=== PATIENT | male | born 1930 | race Caucasian/White ===

== ENCOUNTER 2016-07-06 14:02 | Inpatient (IN) | payer MEDICARE, BC ==
[2016-07-06 14:05] VITALS: O2SAT 95
[2016-07-06 14:26] LABS: AUTOMATED NEUTROPHIL # 4.1 TH/MM3 (1.8-7.7); BASOPHIL % 0.4 % (0.0-2.0); EOSINOPHIL # 0.2 TH/MM3 (0-0.4); EOSINOPHIL % 3.5 % (0.0-4.0); HEMATOCRIT 35.7 % (39.0-51.0); HEMO FLAGS DIFF FINAL; LYMPH % 17.3 % (9.0-44.0); LYMPHOCYTE # 1.1 TH/MM3 (1.0-4.8); MEAN CELL VOLUME 94.9 FL (80.0-100.0); MEAN CORPUSCULAR HEMOGLOBIN 31.8 PG (27.0-34.0); MEAN CORPUSCULAR HGB CONC 33.6 % (32.0-36.0); MONO % 14.3 % (0.0-8.0); NEUT % 64.5 % (16.0-70.0); PLATELET COUNT 103 TH/MM3 (150-450); RED BLOOD COUNT 3.77 MIL/MM3 (4.50-5.90); RED CELL DISTRIBUTION WIDTH 13.2 % (11.6-17.2); WHITE BLOOD COUNT 6.3 TH/MM3 (4.0-11.0)
[2016-07-06 14:30] LABS: I-STAT POTASSIUM 4.9 MMOL/L (3.5-4.9)
--- NOTE | 2016-07-06 14:34 | PD ---
HPI Chief Complaint: trauma alert Time Seen by Provider: 14:23 Travel History International Travel<30 days: No Contact w/Intl Traveler<30days: No Traveled to known affect area: No History of Present Illness HPI Patient was about 89 years old was brought to the emergency room by EMS after falling from a 15 feet high ladder. Patient lost his footing and landed on the ground. He was complaining of left sided hip pain. He was unable to stand up and walk after the fall. I was in the room along with the trauma surgeon to see the patient prior to their arrival as per the radio call. Trauma alert was called based on the age and the mechanism. Patient was brought in boarded and collared. His GCS was 15 the entire transportation. He was hemodynamically stable. He has been complaining only of his left hip pain. Patient is not on any blood thinners. The fall happened about 1 hour prior to arrival. No history of LOC. [facility] Past Medical History Narrative Medical List of his past medical history as reviewed from the nursing note. Allergies-Medications (Allergen,Severity, Reaction): Coded Allergies: No Known Allergies (Unverified , 07/07/16) Comments Patient denied any allergies Reported Meds & Prescriptions Reported Meds & Active Scripts Active Reported B12 (Cyanocobalamin) 1,000 Mcg Tab 1,000 Mcg PO DAILY Vitamin D (Cholecalciferol) 2,000 Unit Tab Aspirin 81 Mg Chew 81 Mg CHEW DAILY Metronidazole Topical 1 % Gel 1 Applic TOPICAL DAILY Metronidazole Topical 1 % Gel 1 Applic TOPICAL DAILY Trazodone (Trazodone HCl) 50 Mg Tab 50 Mg PO HS PRN Furosemide 20 Mg Tab 20 Mg PO DAILY Pravastatin 20 Mg Tab 20 Mg PO DAILY Carvedilol 25 Mg Tab 25 Mg PO BID Lisinopril 10 Mg Tab 10 Mg PO DAILY Narrative Medication Awaiting for the nurse to do the med reconciliation for all medications. Review of Systems Except as stated in HPI: all other systems reviewed are Neg Physical Exam Narrative GENERAL: Awake, alert, boarded and collared, elderly, moderate distress SKIN: Warm and dry. HEAD: Atraumatic. Normocephalic. EYES: Pupils equal and round. No scleral icterus. No injection or drainage. ENT: No nasal bleeding or discharge. Mucous membranes pink and moist. NECK: Trachea midline. No JVD. CARDIOVASCULAR: Regular rate and rhythm. No murmur appreciated. RESPIRATORY: No accessory muscle use. Clear to auscultation. Breath sounds equal bilaterally. GASTROINTESTINAL: Abdomen soft, non-tender, nondistended. Hepatic and splenic margins not palpable. MUSCULOSKELETAL: No obvious deformities. No clubbing. No cyanosis. No edema. Distal pulses were present. Patient had full sensation distally. Decreased range of motion at the left hip joint due to pain. No leg length shortening. NEUROLOGICAL: Awake and alert. No obvious cranial nerve deficits. Motor grossly within normal limits. Normal speech. PSYCHIATRIC: Appropriate mood and affect; insight and judgment normal. Data Data Last Documented VS Vital Signs Date Time Temp Pulse Resp B/P Pulse Ox O2 Delivery O2 Flow Rate FiO2 07/06/16 14:05 95 4.00 07/06/16 14:05 Nasal Cannula Orders I-Stat Profile (07/06/16 14:08) I-Stat Creatinine (07/06/16 14:08) Complete Blood Count With Diff (07/06/16 14:08) Prothrombin Time / Inr (Pt) (07/06/16 14:08) Act Partial Throm Time (Ptt) (07/06/16 14:08) Type And Screen (07/06/16 14:08) Chest, Single Ap (07/06/16 14:08) Pelvis, Ap Only (Routine) (07/06/16 14:08) Ct Brain W/O Iv Contrast(Rout) (07/06/16 14:08) Ct Cerv Spine W/O Contrast (07/06/16 14:08) Ct Abd/Pel W Iv Contrast(Rout) (07/06/16 14:08) Ct Thorax/ Chest W Iv Contrast (07/06/16 14:08) Iv Access Insert/Monitor (07/06/16 14:08) Ecg Monitoring (07/06/16 14:08) Oximetry (07/06/16 14:08) Oxygen Administration (07/06/16 14:08) Fentanyl Inj (Fentanyl Inj) (07/06/16 14:13) Hip, Ap Only Wo Ap Pelvis (07/06/16 ) Admit Order (Ed Use Only) (07/06/16 14:34) Labs Laboratory Tests Test 07/06/16 14:10 White Blood Count 6.3 TH/MM3 Red Blood Count 3.77 MIL/MM3 Hemoglobin 12.0 GM/DL Bedside Hemoglobin 11.6 G/DL Hematocrit 35.7 % Bedside Hematocrit 34.0 % Mean Corpuscular Volume 94.9 FL Mean Corpuscular Hemoglobin 31.8 PG Mean Corpuscular Hemoglobin 33.6 % Concent Red Cell Distribution Width 13.2 % Platelet Count 103 TH/MM3 Mean Platelet Volume 7.9 FL Neutrophils (%) (Auto) 64.5 % Lymphocytes (%) (Auto) 17.3 % Monocytes (%) (Auto) 14.3 % Eosinophils (%) (Auto) 3.5 % Basophils (%) (Auto) 0.4 % Neutrophils # (Auto) 4.1 TH/MM3 Lymphocytes # (Auto) 1.1 TH/MM3 Monocytes # (Auto) 0.9 TH/MM3 Eosinophils # (Auto) 0.2 TH/MM3 Basophils # (Auto) 0.0 TH/MM3 CBC Comment DIFF FINAL Differential Comment Prothrombin Time 11.2 SEC Prothromb Time International 1.0 RATIO Ratio Activated Partial 22.4 SEC Thromboplast Time Bedside Sodium 145 MMOL/L Bedside Potassium 4.9 MMOL/L Bedside Chloride 107 MMOL/L Bedside Blood Urea Nitrogen 32 MG/DL Bedside Creatinine 1.5 MG/DL Bedside Glucose 118 MG/DL Blood Type A POSITIVE Antibody Screen NEGATIVE MDM Medical Screen Exam Complete: Yes Emergency Medical Condition: Yes Medical Record Reviewed: Yes EKG Prior to Arrival: Yes Differential Diagnosis Hip fracture, pelvic fracture, intracranial bleed, cervical fracture, intrathoracic injury, intra-abdominal injury Narrative Course 2:31 PM patient was rolled off the backboard and the spine was palpated by me. There was no point tenderness or step-offs. Rest of his exam for secondary survey remained within normal limits. Patient was taken to CT scan and the trauma surgeon assisted him. Patient remained hemodynamically stable prior to leaving the trauma bay. The portable x-ray of the pelvis and hip showed a left superior and inferior rami fracture. Patient will be admitted to the trauma surgeon based on this. No FAST exam was performed. Critical Care Narrative Aggregate critical care time was 30 minutes. Time to perform other separately billable procedures was not included in the critical care time. My time did not include minutes spent treating any other patients simultaneously or on activities that did not directly contribute to the patient's treatment. The services I provided to this patient were to treat and/or prevent clinically significant deterioration that could result in: Trauma alert, pelvic fracture I provided critical care services requiring my management, as noted below: Chart data review, documentation time, medication orders and management, vital sign assessments/reviewing monitor data, ordering and reviewing lab tests, ordering and interpreting/reviewing x-rays and diagnostic studies, care of the patient and discussion of the patient with the admitting physicians. Trauma Alert - Level One Trauma Alert Level One: Full trauma team activate, Patient evaluated, Trauma surgeon summoned Trauma Alert - Level Two Time Surgeon Called: 13:[address] Yoon Diagnosis Diagnosis: Primary Impression: Fall Qualified Code: W19.XXXA - Fall, initial encounter Additional Impression: Pelvic fracture Qualified Code: S32.502A - Closed fracture of left pubis, unspecified portion of pubis, initial encounter Admitting Physician Requests: Eb Matta MD Jul 06, 2016 14:33
--- NOTE | 2016-07-06 14:34 | RADRPT ---
EXAM DATE/TIME: 07/06/2016 13:56 [facility] COMPARISON: No previous studies available for comparison. INDICATIONS : Trauma alert, fell off a ladder. MEDICAL HISTORY : Unobtainable. SURGICAL HISTORY : Unobtainable. ENCOUNTER: Initial ACUITY: 1 day PAIN SCORE: Non-responsive. LOCATION: Bilateral chest FINDINGS: Artifact is present from a backboard. The heart is enlarged. Pulmonary vascularity is normal. There is no evidence for pneumothorax. Ther e is no alveolar consolidation. CONCLUSION: Compensated cardiomegaly without pneumothorax. Jarod Corrigan MD FACR on July 06, 2016 at 14:27 Board Certified Radiologist. This report was verified electronically.
--- NOTE | 2016-07-06 14:35 | RADRPT ---
EXAM DATE/TIME: 07/06/2016 13:56 [facility] COMPARISON: No previous studies available for comparison. INDICATIONS : Left hip pain. Trauma alert, fell off a ladder. MEDICAL HISTORY : Unobtainable. SURGICAL HISTORY : Unobtainable. ENCOUNTER: Initial ACUITY: 1 day PAIN SCORE: Non-responsive. LOCATION: Left hip. FINDINGS: Proximal femur is intact although internally rotated. CT scan is pending. CONCLUSION: Intact proximal femur. CT scan is pending. Jarod Corrigan MD FACR on July 06, 2016 at 14:27 Board Certified Radiologist. This report was verified electronically.
[2016-07-06] MEDS ORDERED: IOHEXOL 350 MG/ML 10 ML VIAL (for RAD DIAG) IV ONE (14:36)
--- NOTE | 2016-07-06 14:37 | RADRPT ---
EXAM DATE/TIME: 07/06/2016 13:56 [facility] COMPARISON: No previous studies available for comparison. INDICATIONS : Trauma alert, fell off ladder. MEDICAL HISTORY : Unobtainable. SURGICAL HISTORY : Unobtainable. ENCOUNTER: Initial ACUITY: 1 day PAIN SCORE: Non-responsive. LOCATION: Left pelvis. FINDINGS: Single view of the pelvis on a backboard reveals anatomic alignment without fracture. Phleboliths ar e present in the pelvis. Artifact is present from backboard. CONCLUSION: Anatomic alignment without fracture. Jarod Corrigan MD FACR on July 06, 2016 at 14:27 Board Certified Radiologist. This report was verified electronically.
--- NOTE | 2016-07-06 14:37 | RADRPT ---
EXAM DATE/TIME: 07/06/2016 14:19 [facility] COMPARISON: No previous studies available for comparison. INDICATIONS : Trauma alert, fall from ladder today. RADIATION DOSE: 61.90 CTDIvol (mGy) MEDICAL HISTORY : unobtainable SURGICAL HISTORY : unobtainable ENCOUNTER: Initial ACUITY: 1 day PAIN SCALE: Non-responsive LOCATION: Bilateral head TECHNIQUE: Multiple contiguous axial images were obtained of the head. Using automated exposure control and adj ustment of the mA and/or kV according to patient size, radiation dose was kept as low as reasonably a chievable to obtain optimal diagnostic quality images. FINDINGS: CEREBRUM: The ventricles are normal for age. No evidence of midline shift, mass lesion, hemorrhage or acute in farction. No extra-axial fluid collections are seen. POSTERIOR FOSSA: The cerebellum and brainstem are intact. The 4th ventricle is midline. The cerebellopontine angle i s unremarkable. EXTRACRANIAL: The visualized portion of the orbits is intact. SKULL: The calvaria is intact. No evidence of skull fracture. CONCLUSION: Negative for an acute process.. Jarod Corrigan MD FACR on July 06, 2016 at 14:35 Board Certified Radiologist. This report was verified electronically.
[2016-07-06 14:38] LABS: APTT (PATIENT) 22.4 SEC (24.3-30.1); PROTHROMBIN TIME - PATIENT 11.2 SEC (9.8-11.6)
--- NOTE | 2016-07-06 14:55 | RADRPT ---
EXAM DATE/TIME: 07/06/2016 14:28 [facility] COMPARISON: No previous studies available for comparison. INDICATIONS : Trauma alert, fall from ladder today. IV CONTRAST: 80 cc Omnipaque 350 (iohexol) IV ; Cumulative dose for multiple exams. RADIATION DOSE: 15.70 CTDIvol (mGy) ; Combined studies MEDICAL HISTORY : Unobtainable SURGICAL HISTORY : Unobtainable ENCOUNTER: Initial ACUITY: 1 day PAIN SCALE: Non-responsive LOCATION: Bilateral chest TECHNIQUE: Volumetric scanning of the chest was performed. Using automated exposure control and adjustment of the mA and/or kV according to patient size, radiation dose was kept as low as reasonab ly achievable to obtain optimal diagnostic quality images. FINDINGS: Patchy air-space disease is seen in both the right and left lungs. There is a nodulari ty on the right with a 1.5 cm nodular opacity evident. Several other smaller lung nodules are noted o n the right that do deserve further evaluation. Ground glass opacities are evident. The heart is enlarged with mild interstitial prominence. There is no pericardial effusion. There is no pneumothorax. There is adenopathy in the mediastinum with the largest node measuring 2.7 cm which is abnormal. Moderate coronary artery calcifications are seen in the LAD. Portion of the liver and spleen identified are free of focal defects. Review of bone windows reveals degenerative changes in the sternum manubrial joint. There is no evid ence for a rib fracture. There is no evidence for a scapula or clavicle fracture. CONCLUSION: 1. Negative for acute traumatic injury. 2. Abnormal chest with scattered nodular opacities and mediastinal adenopathy that deservers further evaluation. Jarod Corrigan MD FACR on July 06, 2016 at 14:44 Board Certified Radiologist. This report was verified electronically.
--- NOTE | 2016-07-06 14:55 | RADRPT ---
EXAM DATE/TIME: 07/06/2016 14:19 [facility] COMPARISON: No previous studies available for comparison. INDICATIONS: Trauma alert, fall from ladder today. RADIATION DOSE: 22.51 CTDIvol (mGy) MEDICAL HISTORY: Unobtainable SURGICAL HISTORY: Unobtainable ENCOUNTER: Initial ACUITY: 1 day PAIN SCALE: Non-responsive LOCATION: Bilateral neck TECHNIQUE: Volumetric scanning of the cervical spine was performed. Multiplanar reconstructions in the sagittal, coronal and oblique axial planes were performed. Using automated exposure control and adjustment o f the mA and/or kV according to patient size, radiation dose was kept as low as reasonably achievable to obtain optimal diagnostic quality images. FINDINGS: There are degenerative changes in the cervical spine. Alignment is anatomic. C2-C3: Moderate facet disease is present with bilateral neural foraminal encroachment. C3-C4: Moderate facet disease is present with bilateral neural foraminal encroachment worse on the right rylan n the left. C4-C5: Mild facet disease is present with minimal interspace ridging. There is mild cervical spinal stenosi s. C5-C6: Mild facet disease is present with moderate right-sided neural foraminal encroachment. There is no s ignificant spinal stenosis. C6-C7: Uncinate ridging is present with mild bilateral neural foraminal encroachment worse on the right than the left. C7-T1: The bony spinal canal is normal in size. No evidence of disc bulge or herniation. The neural forami na are bilaterally patent. CONCLUSION: Degenerative changes as described above. I do not see evidence for a fracture. Most significant fin ding is neural foraminal encroachment. Jarod Corrigan MD FACR on July 06, 2016 at 14:49 Board Certified Radiologist. This report was verified electronically.
--- NOTE | 2016-07-06 14:59 | RADRPT ---
EXAM DATE/TIME: 07/06/2016 14:28 [facility] COMPARISON: PELVIS AP ONLY, July 06, 2016, 13:56. INDICATIONS : Trauma alert, fall from ladder today. IV CONTRAST: 80 cc Omnipaque 350 (iohexol) IV ; Cumulative dose for multiple exams. ORAL CONTRAST: No oral contrast ingested. RADIATION DOSE: 15.70 CTDIvol (mGy) ; Combined studies MEDICAL HISTORY : Unobtainable SURGICAL HISTORY : Unobtainable ENCOUNTER: Initial ACUITY: 1 day PAIN SCALE: Non-responsive LOCATION: Bilateral abdomen TECHNIQUE: Volumetric scanning of the abdomen and pelvis was performed. Using automated exposure control and adjustment of the mA and/or kV according to patient size, radiation dose was kept as low as reasonably achievable to obtain optimal diagnostic quality images. FINDINGS: Again seen is nodular opacities in both lung bases with scattered areas of pleural thic kening. The liver is free of focal defects. Spleen, pancreas, and adrenals are unremarkable. There is symmetrical renal function. There is no free fluid or free air identified. Bladder is distended. There is a fracture of the symphysis pubis with a very small hematoma evident. Both the right and left hips are intact. CONCLUSION: 1. Nondisplaced fracture of the pubic symphysis with a small hematoma present. 2. Intra-abdominal contents are unremarkable. Jarod Corrigan MD FACR on July 06, 2016 at 14:50 Board Certified Radiologist. This report was verified electronically.
[2016-07-06] MEDS ORDERED: MISCELLANEOUS NURSING INFORMATION XX SCH (15:45)
[2016-07-06] MEDS ORDERED: ENALAPRILAT 1.25 MG/ML VIAL IV PRN (15:45)
[2016-07-06] MEDS ORDERED: MAGNESIUM HYDROXIDE SUSP 30 ML CUP PO PRN (15:45)
[2016-07-06] MEDS ORDERED: SODIUM CHLORIDE 0.9% FLUSH 5 ML FLUSH IVF PRN (15:45)
[2016-07-06] MEDS ORDERED: MORPHINE SULFATE 4 MG/ML INJ IV PRN (15:45)
[2016-07-06] MEDS ORDERED: ACETAMINOPHEN/HYDROcodone 325 MG/5 MG TAB PO PRN (15:45)
[2016-07-06] MEDS ORDERED: CHLORHEXIDINE GLUCONATE 2 % 1 PACK (2 CLOTHS) TOP PRN (15:45)
[2016-07-06 16:13] VITALS: BP 174/78; PULSE 70; RESP 18; O2SAT 97; O2SAT 98
--- NOTE | 2016-07-06 16:17 | HHI.HP ---
HPI Service Critical Care Medicine Primary Care Physician Admission Diagnosis fall, pelvic fracture Diagnosis: Chief Complaint: Left hip pain Travel History International Travel<30 Days: No Contact w/Intl Traveler <30 Da: No Traveled to Known Affected Are: No History of Present Illness This is a 88-year-old gentleman who will be 89 in 8 days. He was on a ladder by his estimation 10-15 feet high when he lost his footing and fell to his left hip. He denies striking his head or loss of consciousness and has total recall of the event. He was brought in as a trauma alert based on his age and the height of his fall. Patient arrived alert and oriented with a [place] Coma Scale of 15 his only complaint was left hip pain. His pain was 4/10 which was brought down to 0 with fentanyl. Review of Systems Constitutional: DENIES: Diaphoretic episodes, Fatigue, Fever, Weight gain, Weight loss, Chills, Dizziness, Change in appetite, Night Sweats Endocrine: DENIES: Heat/cold intolerance, Polydipsia, Polyuria, Polyphagia Eyes: DENIES: Blurred vision, Diplopia, Eye inflammation, Eye pain, Vision loss , Photosensitivity, Double Vision Ears, nose, mouth, throat: DENIES: Tinnitus, Hearing loss, Vertigo, Nasal discharge, Oral lesions, Throat pain, Hoarseness, Ear Pain, Running Nose, Epistaxis, Sinus Pain, Toothache, Odynophagia Respiratory: DENIES: Apneas, Cough, Snoring, Wheezing, Hemoptysis, Sputum production, Shortness of breath Cardiovascular: DENIES: Chest pain, Palpitations, Syncope, Dyspnea on Exertion , PND, Lower Extremity Edema, Orthopnea, Claudication Gastrointestinal: DENIES: Abdominal pain, Black stools, Bloody stools, Constipation, Diarrhea, Nausea, Vomiting, Difficulty Swallowing, Anorexia Genitourinary: DENIES: Sexual dysfunction, Urinary frequency, Urinary incontinence, Urgency, Hematuria, Dysuria, Nocturia, Penile Discharge, Testicular Pain, Testicular Swelling Musculoskeletal: COMPLAINS OF: Joint pain (left hip), DENIES: Muscle aches, Stiffness, Joint Swelling, Back pain, Neck pain Integumentary: DENIES: Abnormal pigmentation, Nail changes, Pruritus, Rash Hematologic/lymphatic: DENIES: Bruising, Lymphadenopathy Immunologic/allergic: DENIES: Eczema, Urticaria Psychiatric: DENIES: Anxiety, Confusion, Mood changes, Depression, Hallucinations, Agitation, Suicidal Ideation, Homicidal Ideation, Delusions Past Family Social History Allergies: Coded Allergies: No Known Allergies (Unverified , 07/06/16) Past Medical History Patient is unsure of his medical history but includes hypertension hypercholesterolemia Past Surgical History Right rotator cuff surgery Reported Medications Lisinopril 10 mg a day carvedilol 25 mg twice a day pravastatin 20 mg daily furosemide 20 mg daily This comes from a hand written list list provided by the patient Family History Reviewed and not relevant Social History Patient denies alcohol tobacco or illegal drug use Physical Exam Vital Signs Vital Signs Date Time Temp Pulse Resp B/P Pulse Ox O2 Delivery O2 Flow Rate FiO2 07/06/16 14:05 95 4.00 Physical Exam Alert and oriented 88-year-old gentleman in no acute distress Head atraumatic normocephalic pupils equal round reactive to light extraocular movements intact sclerae nonicteric conjunctiva was pink Neck soft trachea midline, no tenderness to palpation of the cervical spine Lungs clear to auscultation bilaterally, no tenderness or crepitus to palpation of his chest wall or clavicles Heart regular rate and rhythm Abdomen soft nontender nondistended Pelvis is stable with left-sided tenderness, femoral pulses are palpable bilaterally There is no clubbing cyanosis or edema, chronic venous changes to bilateral lower extremities, palpable dorsalis pedis pulses bilaterally Patient's mood and affect are appropriate Cranial nerves II through XII appear grossly intact Laboratory Laboratory Tests Test 07/06/16 14:10 White Blood Count 6.3 Red Blood Count 3.77 Hemoglobin 12.0 Bedside Hemoglobin 11.6 Hematocrit 35.7 Bedside Hematocrit 34.0 Mean Corpuscular Volume 94.9 Mean Corpuscular Hemoglobin 31.8 Mean Corpuscular Hemoglobin 33.6 Concent Red Cell Distribution Width 13.2 Platelet Count 103 Mean Platelet Volume 7.9 Neutrophils (%) (Auto) 64.5 Lymphocytes (%) (Auto) 17.3 Monocytes (%) (Auto) 14.3 Eosinophils (%) (Auto) 3.5 Basophils (%) (Auto) 0.4 Neutrophils # (Auto) 4.1 Lymphocytes # (Auto) 1.1 Monocytes # (Auto) 0.9 Eosinophils # (Auto) 0.2 Basophils # (Auto) 0.0 CBC Comment DIFF FINAL Differential Comment Prothrombin Time 11.2 Prothromb Time International 1.0 Ratio Activated Partial 22.4 Thromboplast Time Bedside Sodium 145 Bedside Potassium 4.9 Bedside Chloride 107 Bedside Blood Urea Nitrogen 32 Bedside Creatinine 1.5 Bedside Glucose 118 Blood Type A POSITIVE Antibody Screen NEGATIVE Result Diagram: 07/06/16 1410 Imaging Last Impressions Pelvis X-Ray 07/06/16 1408 Signed Impressions: Service Date/Time: Wednesday, July 06, 2016 13:56 - CONCLUSION: Anatomic alignment without fracture. Jarod Corrigan MD FACR Head CT 07/06/16 1408 Signed Impressions: Service Date/Time: Wednesday, July 06, 2016 14:19 - CONCLUSION: Negative for an acute process.. Jarod Corrigan MD FACR Chest X-Ray 07/06/16 1408 Signed Impressions: Service Date/Time: Wednesday, July 06, 2016 13:56 - CONCLUSION: Compensated cardiomegaly without pneumothorax. Jarod Corrigan MD FACR Hip X-Ray 07/06/16 0000 Signed Impressions: Service Date/Time: Wednesday, July 06, 2016 13:56 - CONCLUSION: Intact proximal femur. CT scan is pending. Jarod Corrigan MD FACR Assessment and Plan Assessment and Plan 88-year-old gentleman with nondisplaced left pubic symphysis fracture and a slightly displaced left inferior pubic rami fracture after falling 10-15 feet from a ladder -Admit to trauma service -Orthopedic surgery consult -Physical therapy consult -Adequate pain control and aggressive pulmonary toilet -Case management to evaluate for placement and home rehabilitation options Code Status Full code Robson Yoon MD Jul 06, 2016 16:17
[2016-07-06] MEDS: ENOXAPARIN SODIUM 30 MG/0.3 ML SYRINGE SQ SCH (17:05)
[2016-07-06 17:08] VITALS: BP 178/82; PULSE 73; RESP 18; O2SAT 96
[2016-07-06] MEDS ORDERED: LISI10TA3 PO (17:17)
[2016-07-06] MEDS ORDERED: FURO20TA PO (17:17)
[2016-07-06] MEDS ORDERED: TRAZ50TA12 PO (17:17)
[2016-07-06] MEDS ORDERED: CARV25TA PO (17:17)
[2016-07-06] MEDS ORDERED: PRAV20TA2 PO (17:17)
[2016-07-06] MEDS ORDERED: METR28.4 TOPICAL (17:17)
[2016-07-06] MEDS ORDERED: CYAN1TAB24 PO (17:17)
[2016-07-06] MEDS ORDERED: VITA20003 (17:17)
[2016-07-06] MEDS ORDERED: ASPI81CH CHEW (17:17)
[2016-07-06 20:00] VITALS: BP 149/74; PULSE 77; RESP 19; TEMP 98; O2SAT 95
[2016-07-06] MEDS: DOCUSATE SODIUM 100 MG CAP PO SCH (21:12)
[2016-07-06] MEDS: CARVEDILOL 12.5 MG TAB PO SCH (21:12)
[2016-07-06] MEDS: ONDANSETRON HCL 4 MG/2 ML VIAL IV PRN (21:13)
[2016-07-06 22:28] VITALS: O2SAT 97
--- NOTE | 2016-07-06 22:48 | PD.CONS ---
cc: Tony Sams MD HPI Service Orthopedic Surgeons Consult Requested By Trauma service Reason for Consult Pubic ramus fracture Primary Care Physician No Primary Care Physician Admission Diagnosis fall, pelvic fracture Diagnoses: (1) Fracture of ramus of left pubis Chief Complaint: Left hip pain, shoulder pain History of Present Illness This 85-year-old male was on a ladder trimming trees when he fell. He states he landed on his left side. He was brought to [facility] as a trauma alert. His workup including x-rays and a CT scan did reveal a nondisplaced fracture involving the left pubic ramus near the symphysis as well as the inferior pubic ramus. He was admitted to the trauma service and orthopedic consultation requested. The patient has pain all he when moving. It is directed to the left groin region. He also complains of left shoulder pain. He denies any previous history of problems in these areas. Review of Systems Reviewed and well outlined in the medical record Past Family Social History Past Medical History Allergies: Coded Allergies: No Known Allergies (Unverified , 07/06/16) Past Medical History Patient is unsure of his medical history but includes hypertension hypercholesterolemia Past Surgical History Right rotator cuff surgery Reported Medications Lisinopril 10 mg a day carvedilol 25 mg twice a day pravastatin 20 mg daily furosemide 20 mg daily This comes from a hand written list list provided by the patient Family History Reviewed and not relevant Social History Patient denies alcohol tobacco or illegal drug use Allergies: Coded Allergies: No Known Allergies (Unverified , 07/06/16) Active Ordered Medications Current Medications Medications (Trade) Dose Ordered Sig/Lulu Route Start Time Stop Time Status Last Admin (NS Flush) 2 ml UNSCH PRN IVF 07/06/16 15:45 (Morphine Inj) 2 mg Q3H PRN IV 07/06/16 15:45 ([place] 5-325 Mg) 1 tab Q4H PRN PO 07/06/16 15:45 ([place] 5-325 Mg) 2 tab Q4H PRN PO 07/06/16 15:45 (Vasotec Inj) 1.25 mg Q8H PRN IV 07/06/16 15:45 (Zofran Inj) 4 mg Q6H PRN IV 07/06/16 15:45 07/06/16 21:13 (Lovenox Inj) 30 mg Q12H SQ 07/06/16 17:00 07/06/16 17:05 (Colace) 100 mg BID PO 07/06/16 21:00 07/06/16 21:12 (Milk Of Magncarlos Liq) 30 ml Q6H PRN PO 07/06/16 15:45 Miscellaneous Information 1 Q361D XX 07/06/16 15:45 (Chlorhexidine 2% Cloth) 3 pack Taper DAILY@04 TOP 07/07/16 04:00 07/03/17 03:59 (Chlorhexidine 2% Cloth) 3 pack UNSCH PRN TOP 07/06/16 15:45 (Prinivil) 10 mg DAILY PO 07/07/16 09:00 (Coreg) 25 mg Q12HR PO 07/06/16 21:00 07/06/16 21:12 (Lasix) 20 mg DAILY PO 07/07/16 09:00 (Pravachol) 20 mg DAILY PO 07/07/16 09:00 Reported Meds & Active Scripts Active Reported B12 (Cyanocobalamin) 1,000 Mcg Tab 1,000 Mcg PO DAILY Vitamin D (Cholecalciferol) 2,000 Unit Tab Aspirin 81 Mg Chew 81 Mg CHEW DAILY Metronidazole Topical 1 % Gel 1 Applic TOPICAL DAILY Metronidazole Topical 1 % Gel 1 Applic TOPICAL DAILY Trazodone (Trazodone HCl) 50 Mg Tab 50 Mg PO HS PRN Furosemide 20 Mg Tab 20 Mg PO DAILY Pravastatin 20 Mg Tab 20 Mg PO DAILY Carvedilol 25 Mg Tab 25 Mg PO BID Lisinopril 10 Mg Tab 10 Mg PO DAILY Physical Exam Vital Signs Vital Signs Date Time Temp Pulse Resp B/P Pulse Ox O2 Delivery O2 Flow Rate FiO2 07/06/16 22:28 97 Nasal Cannula 4.00 07/06/16 20:00 98.0 77 19 149/74 95 07/06/16 17:08 73 18 178/82 96 Nasal Cannula 2 07/06/16 16:13 70 18 174/78 98 Nasal Cannula 2 07/06/16 16:13 97 Nasal Cannula 2 07/06/16 16:13 97 Nasal Cannula 2 07/06/16 14:05 95 4.00 Physical Exam The patient is awake and alert and answers questions appropriately. His is at the bedside. He has pain when moving directly to the anterior pelvis and left hip. There is no obvious deformity. His leg lengths are equal. He has mild discomfort with passive range of motion. He is able to move his toes and ankle freely and has good capillary refill and sensation. There is no swelling or localizing signs of other extremity injury. He does have a restricted active range of motion of the left shoulder although is able to move it. He has pain with overhead positioning. He has full mobility of the elbow and wrist and neurologically no focal deficit. Laboratory Laboratory Tests Test 07/06/16 14:10 White Blood Count 6.3 Red Blood Count 3.77 Hemoglobin 12.0 Bedside Hemoglobin 11.6 Hematocrit 35.7 Bedside Hematocrit 34.0 Mean Corpuscular Volume 94.9 Mean Corpuscular Hemoglobin 31.8 Mean Corpuscular Hemoglobin 33.6 Concent Red Cell Distribution Width 13.2 Platelet Count 103 Mean Platelet Volume 7.9 Neutrophils (%) (Auto) 64.5 Lymphocytes (%) (Auto) 17.3 Monocytes (%) (Auto) 14.3 Eosinophils (%) (Auto) 3.5 Basophils (%) (Auto) 0.4 Neutrophils # (Auto) 4.1 Lymphocytes # (Auto) 1.1 Monocytes # (Auto) 0.9 Eosinophils # (Auto) 0.2 Basophils # (Auto) 0.0 CBC Comment DIFF FINAL Differential Comment Prothrombin Time 11.2 Prothromb Time International 1.0 Ratio Activated Partial 22.4 Thromboplast Time Bedside Sodium 145 Bedside Potassium 4.9 Bedside Chloride 107 Bedside Blood Urea Nitrogen 32 Bedside Creatinine 1.5 Bedside Glucose 118 Blood Type A POSITIVE Antibody Screen NEGATIVE Result Diagram: 07/06/16 1410 Imaging Last 48 hours Impressions Pelvis X-Ray 07/06/161407 Signed Impressions: Service Date/Time: Wednesday, July 06, 2016 13:56 - CONCLUSION: Anatomic alignment without fracture. Jarod Corrigan MD FACR Head CT 07/06/161407 Signed Impressions: Service Date/Time: Wednesday, July 06, 2016 14:19 - CONCLUSION: Negative for an acute process.. Jarod Corrigan MD FACR Chest X-Ray 07/06/161407 Signed Impressions: Service Date/Time: Wednesday, July 06, 2016 13:56 - CONCLUSION: Compensated cardiomegaly without pneumothorax. Jarod Corrigan MD FACR Chest CT 07/06/161407 Signed Impressions: Service Date/Time: Wednesday, July 06, 2016 14:28 - CONCLUSION: 1. Negative for acute traumatic injury. 2. Abnormal chest with scattered nodular opacities and mediastinal adenopathy that deservers further evaluation. Jarod Corrigan MD FACR Cervical Spine CT 07/06/161407 Signed Impressions: Service Date/Time: Wednesday, July 06, 2016 14:19 - CONCLUSION: Degenerative changes as described above. I do not see evidence for a fracture. Most significant finding is neural foraminal encroachment. Jarod Corrigan MD FACR Abdomen/Pelvis CT 07/06/161407 Signed Impressions: Service Date/Time: Wednesday, July 06, 2016 14:28 - CONCLUSION: 1. Nondisplaced fracture of the pubic symphysis with a small hematoma present. 2. Intra-abdominal contents are unremarkable. Jarod Corrigan MD FACR Hip X-Ray 07/06/16 0000 Signed Impressions: Service Date/Time: Wednesday, July 06, 2016 13:56 - CONCLUSION: Intact proximal femur. CT scan is pending. Jarod Corrigan MD FACR Assessment & Plan Problem List: (1) Fracture of ramus of left pubis Assessment and Plan The findings and alternatives of the treatment were discussed with the patient and his . Recommendations are for progressive mobilization to tolerance. Physical therapy will be consulted to assist with same. In addition x-rays will be ordered of the left shoulder. The possibility of a soft tissue injury such as a rotator cuff tear and its implications were discussed. The patient and his acknowledged full understanding of the nature of the problem and plan of treatment and agree to it. Tony Sams MD Jul 06, 2016 22:48
[2016-07-07] VITALS (7 sets, daily range): BP systolic 97–137; BP diastolic 57–66; PULSE 70–78; RESP 16–19; TEMP 97.4–98.8; O2SAT 92–99
[2016-07-07] MEDS: CHLORHEXIDINE GLUCONATE 2 % 1 PACK (2 CLOTHS) TOP SCH (04:00)
[2016-07-07] MEDS: ENOXAPARIN SODIUM 30 MG/0.3 ML SYRINGE SQ SCH ×2 (05:00→17:35)
[2016-07-07 05:18] LABS: AUTOMATED NEUTROPHIL # 6.1 TH/MM3 (1.8-7.7); BASOPHIL % 0.5 % (0.0-2.0); EOSINOPHIL # 0.1 TH/MM3 (0-0.4); EOSINOPHIL % 1.4 % (0.0-4.0); HEMATOCRIT 32.3 % (39.0-51.0); LYMPH % 13.1 % (9.0-44.0); LYMPHOCYTE # 1.1 TH/MM3 (1.0-4.8); MEAN CELL VOLUME 93.9 FL (80.0-100.0); MEAN CORPUSCULAR HGB CONC 34.1 % (32.0-36.0); MONO % 11.2 % (0.0-8.0); NEUT % 73.8 % (16.0-70.0); PLATELET COUNT 96 TH/MM3 (150-450); RED BLOOD COUNT 3.44 MIL/MM3 (4.50-5.90); RED CELL DISTRIBUTION WIDTH 13.1 % (11.6-17.2); WHITE BLOOD COUNT 8.3 TH/MM3 (4.0-11.0)
[2016-07-07 05:32] LABS: HEMO FLAGS AUTO DIFF
[2016-07-07 05:38] LABS: BICARBONATE 31.7 MEQ/L (21.0-32.0); POTASSIUM 4.5 MEQ/L (3.5-5.1)
[2016-07-07] MEDS: ACETAMINOPHEN/HYDROcodone 325 MG/5 MG TAB PO PRN (05:40)
[2016-07-07 07:04] LABS: PLATELET ESTIMATE SMEAR LOW (NORMAL); PLATELET MORPHOLOGY NORMAL (NORMAL); SCAN/DIFF AUTO DIFF CONFIRMED
[2016-07-07] MEDS: CARVEDILOL 12.5 MG TAB PO SCH ×2 (08:34→21:34)
[2016-07-07] MEDS: DOCUSATE SODIUM 100 MG CAP PO SCH ×2 (08:34→21:34)
[2016-07-07] MEDS ORDERED: PRAVASTATIN SOD 20 MG TAB PO SCH (09:00)
[2016-07-07] MEDS ORDERED: LISINOPRIL 10 MG TAB PO SCH (09:00)
[2016-07-07] MEDS ORDERED: FUROSEMIDE 20 MG TAB PO SCH (09:00)
[2016-07-07] MEDS ORDERED: traZODone HCL 50 MG TAB PO PRN (12:15)
--- NOTE | 2016-07-07 12:54 | HHI.PR ---
Subjective Subjective Notes PTD: 1 Patient found sitting up in chair. Patient states his pain is, "not that bad when I just sit here." Objective Vitals/I&O Vital Signs Date Time Temp Pulse Resp B/P Pulse Ox O2 Delivery O2 Flow Rate FiO2 07/07/16 08:00 98.1 74 18 137/62 96 07/06/16 22:28 Nasal Cannula 4.00 Labs Laboratory Tests Test 07/06/16 07/07/16 14:10 04:56 White Blood Count 6.3 8.3 Red Blood Count 3.77 3.44 Hemoglobin 12.0 11.0 Bedside Hemoglobin 11.6 Hematocrit 35.7 32.3 Bedside Hematocrit 34.0 Mean Corpuscular Volume 94.9 93.9 Mean Corpuscular Hemoglobin 31.8 32.0 Mean Corpuscular Hemoglobin 33.6 34.1 Concent Red Cell Distribution Width 13.2 13.1 Platelet Count 103 96 Mean Platelet Volume 7.9 8.0 Neutrophils (%) (Auto) 64.5 73.8 Lymphocytes (%) (Auto) 17.3 13.1 Monocytes (%) (Auto) 14.3 11.2 Eosinophils (%) (Auto) 3.5 1.4 Basophils (%) (Auto) 0.4 0.5 Neutrophils # (Auto) 4.1 6.1 Lymphocytes # (Auto) 1.1 1.1 Monocytes # (Auto) 0.9 0.9 Eosinophils # (Auto) 0.2 0.1 Basophils # (Auto) 0.0 0.0 CBC Comment DIFF FINAL AUTO DIFF Differential Comment AUTO DIFF CONFIRMED Prothrombin Time 11.2 Prothromb Time International 1.0 Ratio Activated Partial 22.4 Thromboplast Time Bedside Sodium 145 Bedside Potassium 4.9 Bedside Chloride 107 Bedside Blood Urea Nitrogen 32 Bedside Creatinine 1.5 Bedside Glucose 118 Blood Type A POSITIVE Antibody Screen NEGATIVE Platelet Estimate LOW Platelet Morphology Comment NORMAL Sodium Level 141 Potassium Level 4.5 Chloride Level 104 Carbon Dioxide Level 31.7 Anion Gap 5 Blood Urea Nitrogen 27 Creatinine 1.29 Estimat Glomerular Filtration 53 Rate Random Glucose 140 Calcium Level 8.5 Radiology Last Impressions Pelvis X-Ray 07/06/161407 Signed Impressions: Service Date/Time: Wednesday, July 06, 2016 13:56 - CONCLUSION: Anatomic alignment without fracture. Jarod Corrigan MD FACR Head CT 2/6/17 1408 Signed Impressions: Service Date/Time: Wednesday, July 06, 2016 14:19 - CONCLUSION: Negative for an acute process.. Jarod Corrigan MD FACR Chest X-Ray 07/06/161407 Signed Impressions: Service Date/Time: Wednesday, July 06, 2016 13:56 - CONCLUSION: Compensated cardiomegaly without pneumothorax. Jarod Corrigan MD FACR Chest CT 07/06/161407 Signed Impressions: Service Date/Time: Wednesday, July 06, 2016 14:28 - CONCLUSION: 1. Negative for acute traumatic injury. 2. Abnormal chest with scattered nodular opacities and mediastinal adenopathy that deservers further evaluation. Jarod Corrigan MD FACR Cervical Spine CT 07/06/161407 Signed Impressions: Service Date/Time: Wednesday, July 06, 2016 14:19 - CONCLUSION: Degenerative changes as described above. I do not see evidence for a fracture. Most significant finding is neural foraminal encroachment. Jarod Corrigan MD FACR Abdomen/Pelvis CT 07/06/161407 Signed Impressions: Service Date/Time: Wednesday, July 06, 2016 14:28 - CONCLUSION: 1. Nondisplaced fracture of the pubic symphysis with a small hematoma present. 2. Intra-abdominal contents are unremarkable. Jarod Corrigan MD FACR Hip X-Ray 07/06/16 0000 Signed Impressions: Service Date/Time: Wednesday, July 06, 2016 13:56 - CONCLUSION: Intact proximal femur. CT scan is pending. Jarod Corrigan MD FACR Narrative Exam GENERAL: This is a 85-year-old male sitting up in recliner chair. SKIN: Warm and dry. HEAD: Atraumatic. Normocephalic. EYES: PERRLA ENT: No nasal bleeding or discharge. Mucous membranes pink and moist. NECK: Trachea midline. No JVD. CARDIOVASCULAR: Regular rate and rhythm. RESPIRATORY: No accessory muscle use. Lungs are clear to auscultation. Breath sounds equal bilaterally. No distress or dyspnea. GASTROINTESTINAL: BS + x 4 quads. Abdomen soft, non-tender, nondistended. MUSCULOSKELETAL: Extremities without cyanosis, or edema. + peripheral pulses x 4 extremities. Warm with good capillary refill and sensation. MAEW. NEUROLOGICAL: Awake and alert. Normal speech and pattern. A/P Problem List: (1) Pelvic fracture (2) Fall (3) Fracture of ramus of left pubis Assessment and Plan [place]: This is a 85-year-old male who sustained a fall from a ladder he was trimming trees. Approximately 10-15 foot fall. No LOC. He was A& O. GCS = 15. INJURIES: Pelvic fracture (nondisplaced LEFT pubic symphysis fx and slightly displaced LEFT inferior pubic rami fx (non-op) Consults: Orthopedics. Diet: Regular diet. Tolerating po diet. Encourage good po intake with each meal. Pulmonary: Encourage good pulmonary toileting. IS at bedside and pt encouraged to use. Rationale for use explained to patient, and verbalized understanding. PAIN Management: [place] po. Morphine IV. Activity: OOB. PT and OT ordered. Ortho recommends progressive mobilization. GI prophylaxis: Bowel regimen: Colace and MOM. DVT prophylaxis: Mechanical VTE with SCDs. Chemical management with Lovenox SQ. DC Planning: Case management consulted for assistance with final discharge disposition. Emotional support provided to patient and family at bedside and plan of care discussed. Discussed with RN at bedside. Patient is hemodynamically stable and being managed on the med/surg floor. The exam, history, and the medical decision-making described in the above note were completed with the assistance of the mid-level provider. I reviewed and agree with the findings presented. I attest that I had a [id number] encounter with the patient on the same day, and personally performed and documented my assessment and findings in the medical record. Problem Qualifiers (1) Pelvic fracture: Qualified Code: S32.502A - Closed fracture of left pubis, unspecified portion of pubis, initial encounter (2) Fall: Qualified Code: W19.XXXA - Fall, initial encounter Smitha Frey Jul 07, 2016 12:54 Finn Joseph MD Jul 11, 2016 14:28
[2016-07-07] MEDS: ONDANSETRON HCL 4 MG/2 ML VIAL IV PRN (14:08)
[2016-07-08] VITALS (7 sets, daily range): BP systolic 115–160; BP diastolic 51–64; PULSE 62–80; RESP 16–20; TEMP 98.2–98.9; O2SAT 93–98
[2016-07-08] MEDS: CHLORHEXIDINE GLUCONATE 2 % 1 PACK (2 CLOTHS) TOP SCH ×2 (01:39→20:26)
[2016-07-08] MEDS: ENOXAPARIN SODIUM 30 MG/0.3 ML SYRINGE SQ SCH ×2 (04:59→16:12)
[2016-07-08] MEDS ORDERED: LACTULOSE SYRUP 20 GM/30 ML CUP PO ONE (08:45)
[2016-07-08] MEDS: DOCUSATE SODIUM 50 MG/SENNA 8.6 MG TAB PO SCH ×2 (09:00→20:26)
[2016-07-08] MEDS: FUROSEMIDE 20 MG TAB PO SCH (09:31)
[2016-07-08] MEDS: CARVEDILOL 12.5 MG TAB PO SCH ×2 (09:31→20:26)
[2016-07-08] MEDS: LISINOPRIL 10 MG TAB PO SCH (09:32)
--- NOTE | 2016-07-08 14:58 | HHI.PR ---
Subjective Subjective Notes Reports being OOB, but needing significant assistance. Agreeable for rehab placement Objective Vitals/I&O Vital Signs Date Time Temp Pulse Resp B/P Pulse Ox O2 Delivery O2 Flow Rate FiO2 07/08/16 12:00 98.5 69 18 121/60 96 07/08/16 09:15 Nasal Cannula 3.00 Labs Laboratory Tests Test 07/06/16 07/07/16 14:10 04:56 Bedside Hemoglobin 11.6 G/DL Bedside Hematocrit 34.0 % Prothrombin Time 11.2 SEC Prothromb Time International 1.0 RATIO Ratio Activated Partial 22.4 SEC Thromboplast Time Bedside Sodium 145 MMOL/L Bedside Potassium 4.9 MMOL/L Bedside Chloride 107 MMOL/L Bedside Blood Urea Nitrogen 32 MG/DL Bedside Creatinine 1.5 MG/DL Bedside Glucose 118 MG/DL Blood Type A POSITIVE Antibody Screen NEGATIVE White Blood Count 8.3 TH/MM3 Red Blood Count 3.44 MIL/MM3 Hemoglobin 11.0 GM/DL Hematocrit 32.3 % Mean Corpuscular Volume 93.9 FL Mean Corpuscular Hemoglobin 32.0 PG Mean Corpuscular Hemoglobin 34.1 % Concent Red Cell Distribution Width 13.1 % Platelet Count 96 TH/MM3 Mean Platelet Volume 8.0 FL Neutrophils (%) (Auto) 73.8 % Lymphocytes (%) (Auto) 13.1 % Monocytes (%) (Auto) 11.2 % Eosinophils (%) (Auto) 1.4 % Basophils (%) (Auto) 0.5 % Neutrophils # (Auto) 6.1 TH/MM3 Lymphocytes # (Auto) 1.1 TH/MM3 Monocytes # (Auto) 0.9 TH/MM3 Eosinophils # (Auto) 0.1 TH/MM3 Basophils # (Auto) 0.0 TH/MM3 CBC Comment AUTO DIFF Differential Comment AUTO DIFF CONFIRMED Platelet Estimate LOW Platelet Morphology Comment NORMAL Sodium Level 141 MEQ/L Potassium Level 4.5 MEQ/L Chloride Level 104 MEQ/L Carbon Dioxide Level 31.7 MEQ/L Anion Gap 5 MEQ/L Blood Urea Nitrogen 27 MG/DL Creatinine 1.29 MG/DL Estimat Glomerular Filtration 53 ML/MIN Rate Random Glucose 140 MG/DL Calcium Level 8.5 MG/DL Radiology Last Impressions Pelvis X-Ray 07/06/16 7698 Signed Impressions: Service Date/Time: Wednesday, July 06, 2016 13:56 - CONCLUSION: Anatomic alignment without fracture. Jarod Corrigan MD FACR Head CT 07/06/161407 Signed Impressions: Service Date/Time: Wednesday, July 06, 2016 14:19 - CONCLUSION: Negative for an acute process.. Jarod Corrigan MD FACR Chest X-Ray 07/06/161407 Signed Impressions: Service Date/Time: Wednesday, July 06, 2016 13:56 - CONCLUSION: Compensated cardiomegaly without pneumothorax. Jarod Corrigan MD FACR Chest CT 07/06/161407 Signed Impressions: Service Date/Time: Wednesday, July 06, 2016 14:28 - CONCLUSION: 1. Negative for acute traumatic injury. 2. Abnormal chest with scattered nodular opacities and mediastinal adenopathy that deservers further evaluation. Jarod Corrigan MD FACR Cervical Spine CT 07/06/161407 Signed Impressions: Service Date/Time: Wednesday, July 06, 2016 14:19 - CONCLUSION: Degenerative changes as described above. I do not see evidence for a fracture. Most significant finding is neural foraminal encroachment. Jarod Corrigan MD FACR Abdomen/Pelvis CT 07/06/161407 Signed Impressions: Service Date/Time: Wednesday, July 06, 2016 14:28 - CONCLUSION: 1. Nondisplaced fracture of the pubic symphysis with a small hematoma present. 2. Intra-abdominal contents are unremarkable. Jarod Corrigan MD FACR Hip X-Ray 07/06/16 0000 Signed Impressions: Service Date/Time: Wednesday, July 06, 2016 13:56 - CONCLUSION: Intact proximal femur. CT scan is pending. Jarod Corrigan MD FACR Narrative Exam GENERAL: 85 year old well-nourished, well developed male lying in bed. SKIN: Warm and dry. NECK: Trachea midline. No JVD. CARDIOVASCULAR: Regular rate and rhythm. RESPIRATORY: No accessory muscle use. Lungs clear to auscultation. Breath sounds equal bilaterally. GASTROINTESTINAL: Abdomen soft, non-tender, nondistended. + BS. MUSCULOSKELETAL: Extremities without cyanosis, or edema. MAEW. NEUROLOGICAL: Awake and alert. Normal speech. A/P Problem List: (1) Pelvic fracture (2) Fall (3) Fracture of ramus of left pubis Assessment and Plan INJURIES: LEFT pubic symphysis fx and slightly displaced LEFT inferior pubic rami fx (non- op, nondisplaced) Diet: Regular and tolerating. Pulm: IS, encouraged use. Pain: [place]. Morphine IV. Pain controlled. Activity: OOB. PT and OT evaluating. (progressive mobilization) GI: Not indicated. Bowel: Nadia-colace. MOM. Lactulose x1. + BM today. DVT: DCD's. Lovenox 30 BID. Plan of care discussed with patient at bedside. Plan to discharge to rehab tomorrow. Case management assisting with discharge planning. The exam, history, and the medical decision-making described in the above note were completed with the assistance of the mid-level provider. I reviewed and agree with the findings presented. I attest that I had a [id number] encounter with the patient on the same day, and personally performed and documented my assessment and findings in the medical record. Problem Qualifiers (1) Pelvic fracture: Qualified Code: S32.502A - Closed fracture of left pubis, unspecified portion of pubis, initial encounter (2) Fall: Qualified Code: W19.XXXA - Fall, initial encounter Sven Mora Jul 08, 2016 14:58 Finn Joseph MD Jul 11, 2016 14:32
[2016-07-08] MEDS ORDERED: PRAVASTATIN SOD 20 MG TAB PO SCH (21:00)
[2016-07-09] VITALS: BP 138/66; PULSE 86; RESP 20; TEMP 98.9; O2SAT 94
[2016-07-09 04:00] VITALS: BP 132/61; PULSE 75; RESP 20; TEMP 98.5; O2SAT 93
[2016-07-09] MEDS: ENOXAPARIN SODIUM 30 MG/0.3 ML SYRINGE SQ SCH (05:55)
[2016-07-09 08:00] VITALS: BP 109/55; PULSE 71; RESP 18; TEMP 98; O2SAT 93
[2016-07-09] MEDS: LISINOPRIL 10 MG TAB PO SCH (09:00)
[2016-07-09] MEDS: CARVEDILOL 12.5 MG TAB PO SCH (09:13)
[2016-07-09] MEDS: FUROSEMIDE 20 MG TAB PO SCH (09:13)
[2016-07-09] MEDS: DOCUSATE SODIUM 50 MG/SENNA 8.6 MG TAB PO SCH (09:14)
[2016-07-09] MEDS: ACETAMINOPHEN/HYDROcodone 325 MG/5 MG TAB PO PRN (09:17)
[2016-07-09] MEDS ORDERED: SENN1TAB PO (10:54)
[2016-07-09] MEDS ORDERED: ENOX30P SQ (10:54)
[2016-07-09 12:00] VITALS: BP 107/56; PULSE 71; RESP 18; TEMP 98.5; O2SAT 92
[2016-07-09] MEDS ORDERED: HYDR-3516 PO (12:22)
--- NOTE | 2016-07-09 16:26 | HHI.DS ---
Discharge Summary Admission Date Jul 06, 2016 at 14:35 Discharge Date: Jul 09, 2016 Admitting Diagnosis fall, pelvic fracture (1) Pelvic fracture (2) Fall (3) Fracture of ramus of left pubis Brief History S/P Trauma: Fall from 10-15 feet CBC/BMP: 07/07/16 0456 07/07/16 0456 Significant Findings Laboratory Tests Test 07/07/16 04:56 Red Blood Count 3.44 MIL/MM3 (4.50-5.90) Hemoglobin 11.0 GM/DL (13.0-17.0) Hematocrit 32.3 % (39.0-51.0) Platelet Count 96 TH/MM3 (150-450) Neutrophils (%) (Auto) 73.8 % (16.0-70.0) Monocytes (%) (Auto) 11.2 % (0.0-8.0) Platelet Estimate LOW (NORMAL) Blood Urea Nitrogen 27 MG/DL (7-18) Estimat Glomerular Filtration 53 ML/MIN (>89) Rate Random Glucose 140 MG/DL (74-106) Imaging Last Impressions Pelvis X-Ray 07/06/161407 Signed Impressions: Service Date/Time: Wednesday, July 06, 2016 13:56 - CONCLUSION: Anatomic alignment without fracture. Jarod Corrigan MD FACR Head CT 07/06/161407 Signed Impressions: Service Date/Time: Wednesday, July 06, 2016 14:19 - CONCLUSION: Negative for an acute process.. Jarod Corrigan MD FACR Chest X-Ray 07/06/161407 Signed Impressions: Service Date/Time: Wednesday, July 06, 2016 13:56 - CONCLUSION: Compensated cardiomegaly without pneumothorax. Jarod Corrigan MD FACR Chest CT 07/06/161407 Signed Impressions: Service Date/Time: Wednesday, July 06, 2016 14:28 - CONCLUSION: 1. Negative for acute traumatic injury. 2. Abnormal chest with scattered nodular opacities and mediastinal adenopathy that deservers further evaluation. Jarod Corrigan MD FACR Cervical Spine CT 07/06/161407 Signed Impressions: Service Date/Time: Wednesday, July 06, 2016 14:19 - CONCLUSION: Degenerative changes as described above. I do not see evidence for a fracture. Most significant finding is neural foraminal encroachment. Jarod Corrigan MD FACR Abdomen/Pelvis CT 07/06/16 1408 Signed Impressions: Service Date/Time: Wednesday, July 06, 2016 14:28 - CONCLUSION: 1. Nondisplaced fracture of the pubic symphysis with a small hematoma present. 2. Intra-abdominal contents are unremarkable. Jarod Corrigan MD FACR Hip X-Ray 07/06/16 0000 Signed Impressions: Service Date/Time: Wednesday, July 06, 2016 13:56 - CONCLUSION: Intact proximal femur. CT scan is pending. Jarod Corrigan MD FACR PE at Discharge GENERAL: 85 year old well-nourished, well developed male lying in bed. SKIN: Warm and dry. NECK: Trachea midline. No JVD. CARDIOVASCULAR: Regular rate and rhythm. RESPIRATORY: No accessory muscle use. Lungs clear to auscultation. Breath sounds equal bilaterally. GASTROINTESTINAL: Abdomen soft, non-tender, nondistended. + BS. MUSCULOSKELETAL: Extremities without cyanosis, or edema. MAEW. NEUROLOGICAL: Awake and alert. Normal speech. Hospital Course [place]: Fell from a ladder approximately 10-15 feet while he was trimming trees. No LOC. GSC 15 on scene. INJURIES: Pelvic fractures (nondisplaced LEFT pubic symphysis fx and slightly displaced LEFT inferior pubic rami fx (non-op) Diet: Regular, tolerating well. Pulm; IS, encouraged patient use. Pain: [place]. Pain controlled. Activity: OOB. PT and OT evaluated and recommend PT at rehabilitation. GI: Not indicated. Bowel: Nadia-colace. MOM. LBM 2/ DVT: SCD's. Lovenox Follow-up with orthopedics as outpatient. Plan of care discussed with patient at bedside. Patient is clear from trauma surgery standpoint to safely discharge to SNF. Pt Condition on Discharge: Stable Discharge Disposition: Discharge to SNF Discharge Instructions DIET: Follow Instructions for: As Tolerated, No Restrictions Activities you can perform: Weight Bearing as Sven Camara Jul 09, 2016 16:26
== END 2016-07-09 12:54 | DRG 536 ==
LOC: NEPI 14:02 → NEDA 14:35 → EEVIPCON 14:35 → MERGE 14:35 → EDBD 14:35 → N06B 19:08
PROVIDERS: ADMIT Surgery; ATTEND Surgery
DX: S32.592A Other specified fracture of left pubis, initial encounter for closed fracture (principal); I11.9 Hypertensive heart disease without heart failure; I51.7 Cardiomegaly; R40.2410 Glasgow coma scale score 13-15, unspecified time; W11.XXXA Fall on and from ladder, initial encounter; Y92.9 Unspecified place or not applicable
CPT/HCPCS: 70450; 71010; 71260; 72125; 72170; 73501; 74177; 80048; 82435; 82565; 82947; 84132; 84295; 84520; 85025; 85610; 85730; 86850; 86900; 86901; 94150; 96374; 99291; G0390; J1650; J2405; J3010; Q9967